=== PATIENT | female | born 1980 | race Caucasian/White ===

== ENCOUNTER 2020-12-18 12:07 | Emergency (ER) | payer OTHER ==
[~2020-12-18] VITALS: Ht 170.2 cm; Wt 107.0 kg
[2020-12-18] MEDS ORDERED: METFORMIN HCL500 M1 PO (12:27)
[2020-12-18] MEDS ORDERED: NP THYROID90 MG PO (12:27)
[2020-12-18] MEDS ORDERED: OMEGA-3 ACID ETH1 GM PO (12:27)
[2020-12-18] MEDS ORDERED: BUPROPION XL150 MG PO (12:27)
== END 2020-12-18 18:28 | disposition home or self-care (01) ==
LOC: ED 12:07
DX: K52.9 Noninfective gastroenteritis and colitis, unspecified (principal); E11.9 Type 2 diabetes mellitus without complications; Z88.0 Allergy status to penicillin; Z79.899 Other long term (current) drug therapy; Z79.84 Long term (current) use of oral hypoglycemic drugs
CPT/HCPCS: 80053; 81001; 83690; 84703; 85025; 99284; J7030

== ENCOUNTER 2021-08-01 13:37 | Emergency (ER) | payer OTHER ==
[~2021-08-01] VITALS: Ht 170.2 cm; Wt 107.0 kg
[~2021-08-01 13:37] MED LIST: BUPROPION XL150 MG PO; METFORMIN HCL500 M1 PO; NP THYROID90 MG PO; OMEGA-3 ACID ETH1 GM PO
[2021-08-01] MEDS ORDERED: NP THYROID60 MG PO (13:55)
[2021-08-01] MEDS ORDERED: VENTOLIN HFA18 GM INH ×2 (13:55→13:56)
[2021-08-01] MEDS ORDERED: ONDANSETRON ODT4 MG PO (13:56)
[2021-08-01] MEDS ORDERED: PREDNISONE20 MG PO (15:29)
[2021-08-01] MEDS ORDERED: ZITHROMAX250 MG PO (15:30)
== END 2021-08-01 16:19 | disposition home or self-care (01) ==
LOC: ED 13:37
DX: U07.1 COVID-19 (principal); J12.82 Pneumonia due to coronavirus disease 2019; E11.9 Type 2 diabetes mellitus without complications; M79.10 Myalgia, unspecified site; K58.9 Irritable bowel syndrome, unspecified; Z88.0 Allergy status to penicillin; Z79.84 Long term (current) use of oral hypoglycemic drugs; Z79.899 Other long term (current) drug therapy
CPT/HCPCS: 71045; 99284-25

== ENCOUNTER 2025-10-03 06:00 | Day surgery (SDC) | payer BC ==
[~2025-10-03] VITALS: Ht 170.2 cm; Wt 109.0 kg
[~2025-10-03 06:00] MED LIST changes: +BENADRYL25 MG PO; +CYCLOBENZAPRINE10 MG PO; +IBUPROFEN200 MG PO; +LACTATED RINGER'S 1,000 ML IV SCH; +LOTREXONE4.5 MG PO; +MAGNESIUM400 M1 PO; +MOUNJARO5 MG/0.5 M SUB-Q; +NP THYROID60 MG PO; +ONDANSETRON ODT4 MG PO; +PREDNISONE20 MG PO; +VENTOLIN HFA18 GM INH; +ZITHROMAX250 MG PO
[2025-10-03 06:12] VITALS: BP 151/92
[2025-10-03] MEDS ORDERED: KETOROLAC TROMETHAMINE 30 MG/ML VIAL ONE (06:33)
[2025-10-03] MEDS ORDERED: LIDOCAINE HCL 2% 5 ML SDV ONE (06:33)
[2025-10-03] MEDS ORDERED: DEXAMETHASONE SOD PHOS 4 MG/ML VIAL ONE (06:33)
[2025-10-03] MEDS ORDERED: fentaNYL citrate 100 MCG/2 ML VIAL ONE (06:33)
[2025-10-03] MEDS ORDERED: KETAMINE in NS 50 MG/5 ML SYR ONE (06:33)
[2025-10-03] MEDS ORDERED: ACETAMINOPHEN 1,000 MG/100 ML VIAL ONE (06:33)
[2025-10-03] MEDS ORDERED: ROCURONIUM BROMIDE 50 MG/5 ML SYR ONE ×2 (06:33→08:31)
[2025-10-03] MEDS ORDERED: LIDOCAINE HCL 1% 5 ML SDV INJ ONE (07:00)
[2025-10-03] MEDS ORDERED: IBLOOD GLUCOSE TEST STRIP 1 EA TEST VI PRN ×2 (07:00→09:00)
[2025-10-03] MEDS ORDERED: SCOPOLAMINE 1 MG/3 DAYS PATCH 1 EACH TDSY ONE (07:03)
[2025-10-03] MEDS ORDERED: MIDAZOLAM HCL 2 MG/2 ML VIAL ONE (07:04)
[2025-10-03] MEDS ORDERED: PHENYLEPHRINE HCL IN 0.9% NACL 1 MG/10 ML SYR ONE (08:06)
[2025-10-03] MEDS ORDERED: VASOPRESSIN 20 UNITS/ML VIAL ONE (08:26)
[2025-10-03] MEDS ORDERED: SUGAMMADEX SODIUM 200 MG/2 ML ML ONE (08:40)
[2025-10-03] MEDS ORDERED: fentaNYL citrate 50 MCG/ML SDV IV PRN (09:00)
[2025-10-03] MEDS ORDERED: NALOXONE HCL 0.4 MG SYR IV PRN ×2 (09:00→10:00)
--- NOTE | 2025-10-03 09:37 | NUR ---
PT ARRIVES TO FROM PACU VIA STRETCHER. PT IS DROWSY, BUT RESPONSIVE TO VERBAL STIMULI AT THIS TIME. PT AT BEDSIDE. PT REPORTS PAIN IS 7/10, ICE PACK AND HEAT PACK PROVIDED AT THIS TIME. ICE WATER AT BEDSIDE. CALL LIGHT WITHIN REACH. REPORT RECEIVED FROM ELIGIO BEAN. PT STATES SHE WOULD LIKE TO REST, LIGHTS TURNED DOWN FOR THERAPEUTIC MILIEU.
[2025-10-03 09:38] VITALS: BP 129/77
--- NOTE | 2025-10-03 09:47 | NUR ---
10/03/25 0947 Marissa Coffman 0870 PT ARRIVED IN PACU SLEEPY. 0910 C/O FEELING COLD. WARM BLANKETS AND BLANCA PAW PLACED ON PT. 924 C/O FEELING NAUSEATED. INAPSINE 0.625MG GIVEN IV. 936 NAUSEA GONE. NO C/O'S. TO DS. REPORT GIVEN TO RN. AT BEDSIDE.
[2025-10-03] MEDS ORDERED: MORPHINE SULFATE 10 MG/ML VIAL IV PRN (10:00)
[2025-10-03] MEDS ORDERED: MAGNESIUM HYDROXIDE/AL HYDROX 30 ML CUP PO PRN (10:00)
[2025-10-03] MEDS ORDERED: SIMETHICONE 80 MG CHEW PO PRN (10:00)
[2025-10-03] MEDS ORDERED: FAMOTIDINE 20 MG/ 2 ML VIAL IV PRN (10:00)
[2025-10-03] MEDS ORDERED: OXYCODONE/APAP 5/325 TAB PO PRN (10:00)
[2025-10-03] MEDS ORDERED: PROCHLORPERAZINE EDISYLATE 10 MG/2 ML VIAL IV PRN (10:00)
--- NOTE | 2025-10-03 10:20 | NUR ---
IN PT ROOM FOR PAIN ASSESSMENT. PT RESTING W/EYES CLOSED. RESPIRATIONS EVEN AND UNLABORED. PT REPORTS ICE PACK IS HELPING WITH THE PAIN, LET HER KNOW PRN PAIN MED AVAILABLE IF NEEDED. REMAINS AT BEDSIDE AND ASSISTS WITH DRINKING ICE WATER. PT AND PT REPORT NO FURTHER QUESTIONS OR NEEDS AT THIS TIME. CALL LIGHT WITHIN REACH.
[2025-10-03 10:42] VITALS: BP 134/76
--- NOTE | 2025-10-03 10:48 | NUR ---
IN PT ROOM FOR VS AND ASSESSMENT. PT REPORTS NO CHANGE IN PAIN. ICE PACK TO ABDOMEN AND HEAT TO LOWER BACK AT THIS TIME. PT NOW EATING CRACKERS AND JELLO FOR PRN PAIN MED. PT CONTINUES TO TOLERATE ICE WATER WITHOUT DIFFICULTY OR REPORTS OF NAUSEA. CALL LIGHT WITHIN REACH, PT REMAINS AT BEDSIDE. PT REPORTS NO FURTHER QUESTIONS OR NEEDS AT THIS TIME.
--- NOTE | 2025-10-03 11:45 | NUR ---
CALL LIGHT ANSWERED BY ABDULLAHI RN, PT TO RESTROOM FOR URINE VOID OF 500 ML YELLOW URINE W/SMALL AMOUNT OF BLOOD, NO CLOTS. PT BACK TO BED AND FUNES MD IN ROOM AT BEDSIDE TALKING WITH PT AND PT .
--- NOTE | 2025-10-03 12:00 | NUR ---
ALL QUESTIONS ANSWERED BY FUNES MD. PT NOW GETTING DRESSED W/ ASSISTANCE. CALL LIGHT WITHIN REACH.
[2025-10-03 12:10] VITALS: BP 155/96
--- NOTE | 2025-10-03 12:10 | NUR ---
DC EDUCATION PROVIDED TO PT AND PT . BOTH STATE NO FURTHER QUESTIONS AT THIS TIME. PT OFF OF UNIT VIA WC TO PASSENGER SIDE OF 'S VEHICLE. ALL BELONGINGS IN PT POSSESSION AT THIS TIME. PT REPORTS NO FURTHER NEEDS. VERIFIED W/[facility] THAT PRESCRIPTION FROM FUNES WAS RECEIVED.
[2025-10-03] MEDS ORDERED: SEVOFLURANE 250 ML BTL INH ONE (12:59)
[2025-10-03] MEDS ORDERED: SIMETHICONE 80 MG CHEW PO SCH (13:00)
== END 2025-10-03 12:15 | disposition home or self-care (01) ==
LOC: OPS 06:00 → DS 06:00 → OPS 07:30 → DS 10:00 → OPS 11:55
PROVIDERS: ATTEND Obstetrics & Gynecology
PROC: 0UDB8ZX Extraction of Endometrium, Via Natural or Artificial Opening Endoscopic, Diagnostic (ICD-10-PCS; principal; 2025-10-03 07:30)
PROC: 0WJG4ZZ Inspection of Peritoneal Cavity, Percutaneous Endoscopic Approach (ICD-10-PCS; 2025-10-03 07:30)
DX: N80.329 Endometriosis of the posterior cul-de-sac, unspecified depth (principal); E11.9 Type 2 diabetes mellitus without complications; E03.9 Hypothyroidism, unspecified; J45.909 Unspecified asthma, uncomplicated; M79.7 Fibromyalgia; Z79.85 Long-term (current) use of injectable non-insulin antidiabetic drugs; Z79.890 Hormone replacement therapy; Z79.899 Other long term (current) drug therapy; Z88.0 Allergy status to penicillin; Z88.2 Allergy status to sulfonamides; Z88.8 Allergy status to other drugs, medicaments and biological substances
CPT/HCPCS: 00952; J0131; J0165; J1100; J1790; J1885; J2003; J2250; J2405; J2704; J3010; J3490; J7121